=== PATIENT | male | born 1955 | race Asian ===

== ENCOUNTER → 2017-05-27 | Outpatient (CLI) | payer BC ==
[~2017-05-27] MED LIST: ATEN-42 PO; CEFD300C3 PO; CLOP75TA33 PO; COLC0.6T66 PO; EZET1TAB6 PO; FEBU80TA PO; FENOFIBRATE PO; GABA300C PO; GLIMEPERIDE PO; HYDR-3515; LOSA25TA12 PO; METF500T PO; NITR-87; PATAODR EACHEYE; SAXA5TAB PO; SITA50TA3 PO; TAMS-11 PO
== END | disposition home or self-care (01) ==
LOC: US 08:35
PROVIDERS: ATTEND Internal Medicine
DX: N18.3 Chronic kidney disease, stage 3 (moderate) (principal); K76.0 Fatty (change of) liver, not elsewhere classified; N40.0 Benign prostatic hyperplasia without lower urinary tract symptoms
CPT/HCPCS: 76770

== ENCOUNTER → 2017-06-29 | Outpatient (CLI) | payer BC | END | disposition home or self-care (01) | LOC: US 10:49 | DX: E04.2 Nontoxic multinodular goiter (principal) | CPT/HCPCS: 76536 ==

== ENCOUNTER → 2018-03-03 | Outpatient (CLI) | payer BC | END | disposition home or self-care (01) | LOC: US 10:00 | DX: R19.09 Other intra-abdominal and pelvic swelling, mass and lump (principal) | CPT/HCPCS: 76857 ==

== ENCOUNTER 2019-05-29 19:09 | Inpatient (IN) | payer BC ==
[~2019-05-29] VITALS: Ht 167.6 cm; Wt 72.4 kg
[~2019-05-29 19:09] MED LIST changes: -LOSA25TA12 PO; +LOSA25TA26 PO
[2019-05-29 20:25] LABS: BASOPHILS % 0.7 % (0.0-2.0); EOSINOPHILS % 4.2 % (0.0-5.0); HEMATOCRIT. 31.6 % (42.0-52.0); HEMOGLOBIN. 10.7 g/dL (14.0-18.0); LYMPHOCYTES % 29.9 % (20.0-50.0); MEAN CORPUSCULAR HEMOGLOBIN 30.6 pg (28.0-32.0); MEAN CORPUSCULAR VOLUME 90.6 fL (80.0-94.0); MEAN PLATELET VOLUME 6.4 fl (7.4-10.4); NEUTROPHILS % 57.2 % (40.0-76.0); PLATELET 316 x1000/uL (130-400); RED BLOOD CELL COUNT 3.49 mill/uL (4.7-6.1); RED CELL DISTRIBUTION WIDTH 13.7 % (11.6-14.6)
[2019-05-29 20:30] LABS: CHLORIDE 107 mEq/L (98-107)
[2019-05-29] MEDS ORDERED: ACETAMINOPHEN 500MG TABLET PO ONE (21:30)
[2019-05-29] MEDS ORDERED: IOHEXOL-350 100 ML BOTTLE ONE (22:49)
[2019-05-30 00:30] VITALS: BP 125/70
[2019-05-30] MEDS ORDERED: TRAMADOL 50MG TABLET PO PRN (02:00)
[2019-05-30] MEDS ORDERED: DEXTROSE 50% WATER 50ML SYRINGE IV PRN (02:15)
[2019-05-30] MEDS ORDERED: LIRA0.6P SQ (02:22)
[2019-05-30] MEDS ORDERED: FEBU40TA PO (02:22)
[2019-05-30] MEDS ORDERED: CLOP75TA4 PO (02:22)
[2019-05-30] MEDS ORDERED: AMLO5TAB4 PO (02:22)
[2019-05-30] MEDS ORDERED: METF-416 PO (02:22)
[2019-05-30] MEDS ORDERED: LOSA50TA41 PO (02:22)
[2019-05-30] MEDS: SODIUM CHLORIDE 0.45% 1,000 ML IV SCH ×2 (02:34→15:51)
[2019-05-30 04:00] VITALS: BP 116/69
[2019-05-30] MEDS ORDERED: TAMS-11 PO (04:21)
[2019-05-30] MEDS: INSULIN LISPRO 100 UNITS/ML SUBCUT SCH ×4 (06:47→23:16)
[2019-05-30] MEDS: BLOOD SUGAR DIAGNOSTIC STRIP TEST SCH ×4 (06:47→21:00)
[2019-05-30 07:21] LABS: BASOPHILS % 0.7 % (0.0-2.0); EOSINOPHILS % 4.6 % (0.0-5.0); HEMOGLOBIN. 9.9 g/dL (14.0-18.0); LYMPHOCYTES % 31.6 % (20.0-50.0); MEAN CORPUSCULAR HEMOGLOBIN 30.8 pg (28.0-32.0); MEAN CORPUSCULAR VOLUME 89.8 fL (80.0-94.0); MEAN PLATELET VOLUME 6.6 fl (7.4-10.4); MONOCYTES % 8.4 % (2.0-8.0); NEUTROPHILS % 54.7 % (40.0-76.0); PLATELET 284 x1000/uL (130-400); RED BLOOD CELL COUNT 3.23 mill/uL (4.7-6.1); RED CELL DISTRIBUTION WIDTH 13.5 % (11.6-14.6)
[2019-05-30 07:36] LABS: CHLORIDE 110 mEq/L (98-107)
[2019-05-30 07:51] LABS: LDL CHOLESTEROL 46 mg/dL (5-100)
[2019-05-30 07:52] LABS: CREATINE KINASE 120 IU/L (39-308)
[2019-05-30 07:53] LABS: HDL CHOLESTEROL 41 mg/dL (40-59)
[2019-05-30 07:56] LABS: CREATINE KINASE MB FRACTION 1.6 ng/mL (0.5-3.6)
[2019-05-30 08:00] VITALS: BP 126/68
[2019-05-30] MEDS: CLOPIDOGREL 75MG TABLET PO SCH (09:08)
[2019-05-30] MEDS: ENOXAPARIN 40MG/0.4ML SYR SUBCUT SCH (09:08)
[2019-05-30] MEDS: AMLODIPINE 5MG TABLET PO SCH (09:09)
[2019-05-30 12:00] VITALS: BP 112/61
[2019-05-30] MEDS ORDERED: LACTULOSE 20G/30ML UDC PO PRN (15:15)
[2019-05-30] MEDS ORDERED: HYDROCODONE/ACETAMINOPHEN 5/325MG TABLET PO PRN (15:15)
[2019-05-30] MEDS ORDERED: LORAZEPAM 2MG/ML CPJ IV PRN (15:15)
[2019-05-30] MEDS ORDERED: HYDRALAZINE 20MG/ML VIAL IV PRN (15:15)
[2019-05-30] MEDS ORDERED: DIPHENHYDRAMINE 50MG/ML VIAL IV PRN (15:15)
[2019-05-30 16:00] VITALS: BP 133/81
[2019-05-30 19:11] LABS: CREATINE KINASE 104 IU/L (39-308)
[2019-05-30 19:12] LABS: CREATINE KINASE MB FRACTION 1.5 ng/mL (0.5-3.6)
[2019-05-30] MEDS ORDERED: LOSARTAN POTASSIUM 50 MG TABLET PO SCH (21:00)
[2019-05-30 23:35] VITALS: BP 129/72
[2019-05-31 04:00] VITALS: BP 123/67
[2019-05-31 05:45] LABS: CHLORIDE 108 mEq/L (98-107)
[2019-05-31] MEDS: SODIUM CHLORIDE 0.45% 1,000 ML IV SCH (05:50)
[2019-05-31 05:57] LABS: CREATINE KINASE 79 IU/L (39-308)
[2019-05-31 05:58] LABS: CREATINE KINASE MB FRACTION < 1.0 ng/mL (0.5-3.6)
[2019-05-31 06:10] LABS: HEMATOCRIT 30.7 % (42.0-52.0); HEMOGLOBIN 10.7 g/dL (14.0-18.0); MEAN CORPUSCULAR HEMOGLOBIN 31.1 pg (28.0-32.0); MEAN CORPUSCULAR VOLUME 89.2 fL (80.0-94.0); PLATELET 281 x1000/uL (130-400); RED BLOOD CELL COUNT 3.44 mill/uL (4.7-6.1); RED CELL DISTRIBUTION WIDTH 13.5 % (11.6-14.6)
[2019-05-31] MEDS: BLOOD SUGAR DIAGNOSTIC STRIP TEST SCH ×2 (07:10→12:19)
[2019-05-31] MEDS: INSULIN LISPRO 100 UNITS/ML SUBCUT SCH ×2 (07:40→12:26)
[2019-05-31 08:00] VITALS: BP 138/84
[2019-05-31] MEDS: AMLODIPINE 5MG TABLET PO SCH (08:27)
[2019-05-31] MEDS: ENOXAPARIN 40MG/0.4ML SYR SUBCUT SCH (08:27)
[2019-05-31] MEDS: CLOPIDOGREL 75MG TABLET PO SCH (08:28)
[2019-05-31] MEDS ORDERED: FAMOTIDINE 20MG/2ML VIAL IV SCH (09:00)
[2019-05-31 12:00] VITALS: BP 132/84
[2019-05-31] MEDS ORDERED: TRAMADOL 50MG TABLET PO PRN (13:00)
[2019-05-31 14:18] VITALS: BP 132/84
== END 2019-05-31 14:55 | disposition home or self-care (01) | DRG 313 ==
LOC: ER 19:09 → EDBEDREQ 20:06 → 8WST 23:33 → EDBEDREQTM 23:38 → EDBEDREQ 23:38 → 8WST 05-30 01:21
PROVIDERS: ADMIT Internal Medicine; ATTEND Internal Medicine
DX: R07.89 Other chest pain (principal); I50.33 Acute on chronic diastolic (congestive) heart failure; D64.9 Anemia, unspecified; E86.0 Dehydration; I11.0 Hypertensive heart disease with heart failure; M48.061 Spinal stenosis, lumbar region without neurogenic claudication; E11.9 Type 2 diabetes mellitus without complications; M48.02 Spinal stenosis, cervical region; I25.2 Old myocardial infarction; Z86.73 Personal history of transient ischemic attack (TIA), and cerebral infarction without residual deficits; Z79.899 Other long term (current) drug therapy
CPT/HCPCS: 36415; 71045; 71275; 72141; 72148; 80048; 80061; 82550; 82553; 82962; 83036; 83880; 84484; 85027; 85379; 93005; 93306; 93970; 99285; J1650; J1815; J3490; Q9967

== ENCOUNTER → 2019-11-14 | Outpatient (CLI) | payer MEDICARE, BC ==
[~2019-11-14] MED LIST changes: +AMLO5TAB4 PO; -ATEN-42 PO; -CEFD300C3 PO; -CLOP75TA33 PO; +CLOP75TA4 PO; -COLC0.6T66 PO; -EZET1TAB6 PO; +FEBU40TA PO; -FEBU80TA PO; -FENOFIBRATE PO; -GABA300C PO; -GLIMEPERIDE PO; -HYDR-3515; +LIRA0.6P SQ; -LOSA25TA26 PO; +LOSA50TA41 PO; +METF-416 PO; -METF500T PO; -NITR-87; -PATAODR EACHEYE; -SAXA5TAB PO; -SITA50TA3 PO
== END | disposition home or self-care (01) ==
LOC: LAB 14:20
PROVIDERS: ATTEND Internal Medicine
DX: M70.22 Olecranon bursitis, left elbow (principal)
CPT/HCPCS: 89060

== ENCOUNTER → 2020-12-16 | Outpatient (CLI) | payer MEDICARE, BC ==
[~2020-12-16] MED LIST changes: +CLOP-31 PO; -CLOP75TA4 PO
== END | disposition home or self-care (01) ==
LOC: RAD 12:08
PROVIDERS: ATTEND Specialist
DX: I67.82 Cerebral ischemia (principal); R51.9 Headache, unspecified